=== PATIENT | female | born 1990 | race African-American/Black ===

== ENCOUNTER 2019-06-24 07:36 | Inpatient (IN) ==
[2019-06-24] MEDS ORDERED: FAMOTIDINE 20 MG/2 ML VIAL IV ONE (07:42)
[2019-06-24] MEDS ORDERED: CITRIC ACID/SODIUM CITRATE 30 ML UDCUP PO ONE (07:42)
[2019-06-24] MEDS ORDERED: ceFAZolin 2,000 MG in PREMIX 1 EACH IV ONE (07:42)
[2019-06-24] MEDS ORDERED: OXYTOCIN/LR 30 UNIT/1,000 ML BAG IV ONE (07:43)
[2019-06-24] MEDS ORDERED: OXYTOCIN 10 UNIT/ML VIAL IM ONE (07:43)
[2019-06-24] MEDS ORDERED: LACTATED RINGERS 1,000 ML IV SCH ×2 (08:00→11:30)
[2019-06-24] MEDS ORDERED: BUTORPHANOL 1 MG/ML VIAL ONE (08:08)
[2019-06-24 08:14] LABS: Basophils % 0.2 % (0.0-0.8); Eosinophils # 0.1 10*3/uL (0.0-0.87); Eosinophils % 0.6 % (0.00-10.9); Hematocrit 33.6 VOL% (35.7-47.0); Hemoglobin 10.7 GM/DL (12.0-16.0); Immature Granulocytes % 0.6 %; Immature Granulocytes Absolute 0.07 #; Lymphocytes # 2.7 10*3/uL (1.4-4.0); Lymphocytes % 21.4 % (21.3-54.2); Mean Corpuscular HGB Conc 31.8 GM/DL (32-36); Mean Corpuscular Volume 73.7 FL (87-102); Mean Platelet Volume 9.2 FL (9.6-12.0); Monocytes % 10.4 % (1.7-12.7); Neutrophils % 66.8 % (38.7-73.9); Platelet Count 312 T/CUMM (130-400); Red Blood Count 4.56 MC/CUMM (3.8-5.5); Red Cell Distribution Width 13.8 % (9.3-17.3); White Blood Count 12.6 T/CUMM (4-12)
[2019-06-24] MEDS ORDERED: OXYTOCIN/LR 20 UNIT/1,000 ML BAG IV ONE ×2 (09:02→11:11)
[2019-06-24 10:46] LABS: Apearance,Urine CLEAR (Clear); Bilirubin,Urine Negative (Negative); Blood, Urine Negative (Negative); Glucose,Urine (UA) Negative (Negative); Ketones,Urine 20 mg/dL (Negative); Mucus,Urine Occasional /LPF (Occasional); Nitrite,Urine Negative (Negative); Protein,Urine Negative; RBC,Urine 1 /HPF (0-4); Squamous Epithelial Cell,Urine Occasional /HPF (0-10); Urine Color Yellow (Yellow); Urine Specific Gravity 1.017 (1.001-1.035); WBC,Urine 1 /HPF (0-6)
[2019-06-24] MEDS ORDERED: fentaNYL 100 MCG/2 ML VIAL ONE (10:50)
[2019-06-24] MEDS ORDERED: BUPIVACAINE SPINAL 0.75% 2 ML AMP SPINAL ONE (10:50)
[2019-06-24] MEDS ORDERED: MORPHINE 10 MG/10 ML VIAL ONE (10:50)
[2019-06-24] MEDS ORDERED: PHENYLEPHRINE 1 MG/10 ML SYRINGE IV ONE (10:50)
[2019-06-24] MEDS ORDERED: ONDANSETRON 4 MG/2 ML VIAL ONE (10:51)
[2019-06-24] MEDS ORDERED: LACTATED RINGERS 1,000 ML IV ONE (10:51)
[2019-06-24] MEDS ORDERED: DEXAMETHASONE 4 MG/1 ML VIAL ONE (10:55)
[2019-06-24] MEDS ORDERED: BUPIVACAINE 0.5% 50 ML VIAL ONE (10:55)
[2019-06-24] MEDS ORDERED: ONDANSETRON 4 MG/2 ML VIAL IV PRN (11:11)
[2019-06-24] MEDS ORDERED: ACETAMINOPHEN 325 MG TABLET PO PRN (11:11)
[2019-06-24] MEDS ORDERED: MAGNESIUM HYDROXIDE SUSP 30 ML UDCUP PO PRN (11:11)
[2019-06-24] MEDS ORDERED: SIMETHICONE CHEW 80 MG TABLET PO PRN (11:11)
[2019-06-24] MEDS ORDERED: RHO(D) IMMUNE GLOBULIN 300 MCG SYRINGE IM ONE (11:11)
[2019-06-24] MEDS ORDERED: diphenhydrAMINE 50 MG/1 ML VIAL IV PRN (14:29)
[2019-06-24] MEDS ORDERED: ceFAZolin 1,000 MG in SYRINGE 1 EACH IV SCH (14:30)
[2019-06-24] MEDS ORDERED: diphenhydrAMINE 50 MG/1 ML VIAL ONE (14:47)
[2019-06-24] MEDS: ceFAZolin 1,000 MG in SYRINGE 1 EACH IV SCH (17:08)
[2019-06-24] MEDS: IBUPROFEN 800 MG TABLET PO PRN (18:48)
[2019-06-24 19:04] LABS: Hematocrit 32.7 VOL% (35.7-47.0); Hemoglobin 10.5 GM/DL (12.0-16.0); Mean Corpuscular Volume 73.6 FL (87-102); Red Blood Count 4.44 MC/CUMM (3.8-5.5)
[2019-06-24 19:05] LABS: Basophils % 0.3 % (0.0-0.8); Lymphocytes % 3.8 % (21.3-54.2); Mean Corpuscular HGB Conc 32.1 GM/DL (32-36); Mean Platelet Volume 8.8 FL (9.6-12.0); Neutrophils % 90.3 % (38.7-73.9); Platelet Count 313 T/CUMM (130-400); Red Cell Distribution Width 13.5 % (9.3-17.3)
[2019-06-24 19:06] LABS: Basophils # 0.1 10*3/uL (0.0-0.2); Immature Granulocytes % 0.6 %; Immature Granulocytes Absolute 0.14 #; Lymphocytes # 0.8 10*3/uL (1.4-4.0)
[2019-06-24 19:09] LABS: Elliptocytes 1+; Hypochromasia 1+; Lymphocytes 4 % (20-55); Segmented Neutrophils 92 % (50-85); Target Cells 1+; Total Cells Counted 100
[2019-06-24 19:10] LABS: Platelet Estimate Adequate; Polychromasia Few
[2019-06-24] MEDS ORDERED: hydrOXYzine HCL 25 MG/1 ML VIAL IM PRN (20:56)
[2019-06-24] MEDS: DOCUSATE SODIUM 100 MG CAPSULE PO SCH (22:06)
[2019-06-25] MEDS: ceFAZolin 1,000 MG in SYRINGE 1 EACH IV SCH (01:05)
[2019-06-25 05:33] LABS: Basophils % 0.2 % (0.0-0.8); Eosinophils % 0.2 % (0.00-10.9); Hemoglobin 9.1 GM/DL (12.0-16.0); Immature Granulocytes % 0.6 %; Lymphocytes % 17.1 % (21.3-54.2); Mean Corpuscular HGB Conc 32.5 GM/DL (32-36); Mean Corpuscular Volume 73.5 FL (87-102); Mean Platelet Volume 9.6 FL (9.6-12.0); Monocytes % 9.8 % (1.7-12.7); Neutrophils % 72.1 % (38.7-73.9); Platelet Count 284 T/CUMM (130-400); Red Blood Count 3.81 MC/CUMM (3.8-5.5); Red Cell Distribution Width 13.7 % (9.3-17.3); White Blood Count 17.3 T/CUMM (4-12)
[2019-06-25] MEDS: METOCLOPRAMIDE 10 MG TABLET PO SCH ×2 (09:23→20:41)
[2019-06-25] MEDS: MULTIVITAMIN (PRENATAL) TABLET PO SCH (09:23)
[2019-06-25] MEDS: DOCUSATE SODIUM 100 MG CAPSULE PO SCH ×2 (09:23→20:41)
[2019-06-25] MEDS: IBUPROFEN 800 MG TABLET PO PRN ×2 (10:03→20:43)
[2019-06-26] MEDS: IBUPROFEN 800 MG TABLET PO PRN (04:17)
[2019-06-26] MEDS: METOCLOPRAMIDE 10 MG TABLET PO SCH (06:18)
[2019-06-26 07:34] VITALS: BP 121/67
[2019-06-26] MEDS ORDERED: INFLUENZA VIRUS VACCINE 0.5 ML SYRINGE IM ONE (08:22)
[2019-06-26] MEDS: MULTIVITAMIN (PRENATAL) TABLET PO SCH (08:51)
[2019-06-26] MEDS: DOCUSATE SODIUM 100 MG CAPSULE PO SCH (08:51)
[2019-06-26] MEDS ORDERED: DIPH/TET/ACEL PERT BOOSTER VACCINE 0.5 ML VIAL IM ONE (09:22)
== END 2019-06-26 15:05 | disposition home or self-care (01) | DRG 540 ==
LOC: N.LD 07:36 → N.OB 14:00
PROVIDERS: ADMIT Obstetrics & Gynecology; ATTEND Obstetrics & Gynecology
PROC: LDCSECT (ICD-10-PCS; 2019-06-24 13:15)

== ENCOUNTER 2020-08-15 10:38 | Inpatient (IN) ==
[2020-08-15] MEDS ORDERED: ceFAZolin 2,000 MG in PREMIX 1 EACH IV ONE (10:53)
[2020-08-15] MEDS ORDERED: CITRIC ACID/SODIUM CITRATE 30 ML UDCUP PO ONE (10:53)
[2020-08-15] MEDS ORDERED: FAMOTIDINE 20 MG/2 ML VIAL IV ONE (10:53)
[2020-08-15] MEDS ORDERED: LACTATED RINGERS 1,000 ML IV ONE ×2 (10:55→15:24)
[2020-08-15] MEDS ORDERED: LACTATED RINGERS 1,000 ML IV SCH ×2 (11:00→17:00)
[2020-08-15] MEDS ORDERED: OXYTOCIN/LR 30 UNIT/1,000 ML BAG IV ONE (11:02)
[2020-08-15] MEDS ORDERED: OXYTOCIN 10 UNIT/ML VIAL IM ONE (11:02)
[2020-08-15 11:25] LABS: Basophils % 0.3 % (0.0-0.8); Eosinophils # 0.1 10*3/uL (0.0-0.87); Eosinophils % 0.6 % (0.00-10.9); Hematocrit 35.8 VOL% (35.7-47.0); Hemoglobin 11.7 GM/DL (12.0-16.0); Immature Granulocytes % 0.5 %; Immature Granulocytes Absolute 0.06 #; Lymphocytes # 2.6 10*3/uL (1.4-4.0); Lymphocytes % 22.5 % (21.3-54.2); Mean Corpuscular HGB Conc 32.7 GM/DL (32-36); Mean Corpuscular Volume 74.6 FL (87-102); Mean Platelet Volume 9.2 FL (9.6-12.0); Monocytes % 7.8 % (1.7-12.7); Neutrophils % 68.3 % (38.7-73.9); Platelet Count 282 T/CUMM (130-400); Red Cell Distribution Width 14.5 % (9.3-17.3); White Blood Count 11.5 T/CUMM (4-12)
[2020-08-15 11:51] LABS: Alanine Aminotransferase 41 U/L (13-56); Albumin 2.7 G/DL (3.4-5.0); Alkaline Phosphatase 219 U/L (45-117); Aspartate Amino Transferase 28 U/L (0-37); Bilirubin,Total < 0.39 MG/DL (0.2-1.0); Blood Urea Nitrogen 10 MG/DL (7-18); Calcium 9.5 MG/DL (8.5-10.1); Estimated Glom Filtration Rate 125 ML/MIN; Glucose 71 MG/DL (74-106); Total Protein 7.8 G/DL (6.4-8.3)
[2020-08-15] MEDS ORDERED: BUPIVACAINE SPINAL 0.75% 2 ML AMP SPINAL ONE (14:32)
[2020-08-15] MEDS ORDERED: MORPHINE 10 MG/10 ML VIAL ONE (14:32)
[2020-08-15] MEDS ORDERED: BUPIVACAINE MPF 0.5% /EPI 30 ML VIAL ONE (14:32)
[2020-08-15] MEDS ORDERED: ONDANSETRON 4 MG/2 ML VIAL ONE (14:32)
[2020-08-15] MEDS ORDERED: miSOPROStoL 200 MCG TABLET ONE (14:45)
[2020-08-15] MEDS ORDERED: CARBOPROST TROMETHAMINE 250 MCG/ML AMP IM ONE (14:45)
[2020-08-15] MEDS ORDERED: METHYLERGONOVINE 0.2 MG/1 ML AMP ONE (14:45)
[2020-08-15] MEDS ORDERED: TRANEXAMIC ACID 1,000 MG/10 ML VIAL ONE (14:45)
[2020-08-15] MEDS ORDERED: SODIUM CHLORIDE 0.9% 100 ML IV ONE (14:46)
[2020-08-15] MEDS ORDERED: DEXAMETHASONE 4 MG/1 ML VIAL ONE (15:27)
[2020-08-15] MEDS ORDERED: KETOROLAC 30 MG/1 ML VIAL ONE (15:27)
[2020-08-15] MEDS ORDERED: MIDAZOLAM 2 MG/2 ML VIAL ONE (15:38)
[2020-08-15 15:47] LABS: Cord Arterial Blood HCO3 24.1 MMOL/L
[2020-08-15 15:51] LABS: Cord Venous Blood HCO3 23.9 MMOL/L; Cord Venous Blood PCO2 40.5 MMHG; Cord Venous Blood PO2 35.2
[2020-08-15 15:52] LABS: Bilirubin,Urine Negative (Negative); Blood, Urine Negative (Negative); Glucose,Urine (UA) Negative (Negative); Ketones,Urine 5 mg/dL (Negative); Mucus,Urine Occasional /LPF (Occasional); Nitrite,Urine Negative (Negative); Protein,Urine Negative; RBC,Urine <1 /HPF (0-4); Squamous Epithelial Cell,Urine Occasional /HPF (0-10); Urine Appearance CLEAR (Clear); Urine Color Straw (Yellow); Urine Specific Gravity 1.009 (1.001-1.035); Urine Urobilinogen < 2.0 EU/DL (0.2-1.0); WBC,Urine <1 /HPF (0-6)
[2020-08-15] MEDS ORDERED: PHENYLEPHRINE 1 MG/10 ML SYRINGE IV ONE (16:09)
[2020-08-15] MEDS ORDERED: RHO(D) IMMUNE GLOBULIN 300 MCG SYRINGE IM ONE (16:56)
[2020-08-15] MEDS ORDERED: IBUPROFEN 800 MG TABLET PO PRN (16:56)
[2020-08-15] MEDS ORDERED: ACETAMINOPHEN 325 MG TABLET PO PRN (16:56)
[2020-08-15] MEDS ORDERED: SIMETHICONE CHEW 80 MG TABLET PO PRN (16:56)
[2020-08-15] MEDS ORDERED: ONDANSETRON 4 MG/2 ML VIAL IV PRN (16:56)
[2020-08-15] MEDS ORDERED: OXYTOCIN/LR 20 UNIT/1,000 ML BAG IV ONE (16:56)
[2020-08-15] MEDS ORDERED: PROMETHAZINE 25 MG/1 ML VIAL ONE (16:56)
[2020-08-15] MEDS ORDERED: PROMETHAZINE 25 MG/1 ML VIAL IM ONE (16:57)
[2020-08-15] MEDS ORDERED: ceFAZolin 1,000 MG in SYRINGE 1 EACH IV SCH (17:00)
[2020-08-15] MEDS ORDERED: diphenhydrAMINE 50 MG/1 ML VIAL IV PRN (19:06)
[2020-08-15 22:41] LABS: Basophils % 0.2 % (0.0-0.8); Hematocrit 35.6 VOL% (35.7-47.0); Hemoglobin 11.5 GM/DL (12.0-16.0); Immature Granulocytes % 0.6 %; Lymphocytes % 5.6 % (21.3-54.2); Mean Corpuscular HGB Conc 32.3 GM/DL (32-36); Mean Corpuscular Volume 74.9 FL (87-102); Mean Platelet Volume 9.3 FL (9.6-12.0); Monocytes % 2.2 % (1.7-12.7); Neutrophils % 91.4 % (38.7-73.9); Platelet Count 259 T/CUMM (130-400); Red Blood Count 4.75 MC/CUMM (3.8-5.5); Red Cell Distribution Width 14.6 % (9.3-17.3)
[2020-08-15] MEDS: DOCUSATE SODIUM 100 MG CAPSULE PO SCH (22:52)
[2020-08-16 00:12] LABS: Lymphocytes 6 % (20-55); Segmented Neutrophils 94 % (50-85); Total Cells Counted 100
[2020-08-16 00:13] LABS: Hypochromasia 1+; Microcytosis 2+; Platelet Estimate Normal; Polychromasia Few
[2020-08-16 00:14] LABS: Anisocytosis Slight
[2020-08-16 05:07] LABS: Basophils % 0.2 % (0.0-0.8); Hematocrit 29.8 VOL% (35.7-47.0); Hemoglobin 9.6 GM/DL (12.0-16.0); Immature Granulocytes % 0.6 %; Lymphocytes # 1.5 10*3/uL (1.4-4.0); Lymphocytes % 9.4 % (21.3-54.2); Mean Corpuscular HGB Conc 32.2 GM/DL (32-36); Mean Corpuscular Volume 75.1 FL (87-102); Mean Platelet Volume 9.7 FL (9.6-12.0); Monocytes % 5.7 % (1.7-12.7); Neutrophils % 84.1 % (38.7-73.9); Platelet Count 252 T/CUMM (130-400); Red Blood Count 3.97 MC/CUMM (3.8-5.5); Red Cell Distribution Width 14.5 % (9.3-17.3); White Blood Count 15.5 T/CUMM (4-12)
[2020-08-16] MEDS ORDERED: ceFAZolin 1,000 MG in SYRINGE 1 EACH IV SCH (07:00)
[2020-08-16] MEDS ORDERED: diphenhydrAMINE CAP 25 MG CAPSULE PO PRN (07:35)
[2020-08-16] MEDS: MAGNESIUM HYDROXIDE SUSP 30 ML UDCUP PO PRN ×2 (08:08→19:46)
[2020-08-16] MEDS: DOCUSATE SODIUM 100 MG CAPSULE PO SCH ×2 (08:08→19:46)
[2020-08-16] MEDS: MULTIVITAMIN (PRENATAL) TABLET PO SCH (08:08)
[2020-08-17] MEDS: DOCUSATE SODIUM 100 MG CAPSULE PO SCH ×2 (05:49→08:34)
[2020-08-17 07:19] VITALS: BP 131/75
[2020-08-17] MEDS: MULTIVITAMIN (PRENATAL) TABLET PO SCH (08:32)
[2020-08-17] MEDS: MAGNESIUM HYDROXIDE SUSP 30 ML UDCUP PO PRN (08:34)
== END 2020-08-17 11:25 | disposition home or self-care (01) | DRG 540 ==
LOC: N.LD 10:38 → N.OB 18:29
PROVIDERS: ADMIT Obstetrics & Gynecology; ATTEND Obstetrics & Gynecology
PROC: LDCSECT (ICD-10-PCS; 2020-08-15 12:45)

== ENCOUNTER 2022-11-08 20:19 | Inpatient (IN) ==
[2022-11-08 21:43] LABS: Basophils % 0.3 % (0.0-0.8); Eosinophils % 0.1 % (0.00-10.9); Hematocrit 41.8 VOL% (35.7-47.0); Hemoglobin 13.6 GM/DL (12.0-16.0); Immature Granulocytes % 0.6 %; Lymphocytes # 2.2 10*3/uL (1.4-4.0); Lymphocytes % 13.5 % (21.3-54.2); Mean Corpuscular HGB Conc 32.5 GM/DL (32-36); Mean Corpuscular Volume 73.9 FL (87-102); Mean Platelet Volume 9.3 FL (9.6-12.0); Monocytes # 0.5 10*3/uL (0.11-0.8); Monocytes % 3.4 % (1.7-12.7); Neutrophils % 82.1 % (38.7-73.9); Platelet Count 281 T/CUMM (130-400); Red Blood Count 5.66 MC/CUMM (3.8-5.5); Red Cell Distribution Width 13.8 % (9.3-17.3); White Blood Count 15.94 T/CUMM (4-12)
[2022-11-08] MEDS ORDERED: ONDANSETRON 4 MG/2 ML VIAL IV STA (22:01)
[2022-11-08] MEDS ORDERED: HYDROmorphone 1 MG/1 ML SYRINGE IV STA (22:01)
[2022-11-08 22:08] LABS: Albumin 4.3 G/DL (3.4-5.0); Bilirubin,Total 0.4 MG/DL (0.20-1.00); Calcium 9.2 MG/DL (8.5-10.1); Osmolality,Calculated 286.8 MOS/KG (273-304); Potassium 4.1 MMOL/L (3.5-5.1); Total Protein 8.6 G/DL (6.4-8.2)
[2022-11-08] MEDS ORDERED: ceFAZolin 2,000 MG/50 ML DUPLEX IV ONE (22:15)
[2022-11-08] MEDS ORDERED: MAGNESIUM HYDROXIDE SUSP 30 ML UDCUP PO PRN (22:15)
[2022-11-09] MEDS: ONDANSETRON 4 MG/2 ML VIAL IV PRN ×2 (01:44→06:46)
[2022-11-09] MEDS: HYDROmorphone 1 MG/1 ML SYRINGE IV PRN ×2 (01:44→04:50)
[2022-11-09] MEDS ORDERED: LIDOCAINE 2% 5 ML VIAL ONE (08:20)
[2022-11-09] MEDS ORDERED: MIDAZOLAM 2 MG/2 ML VIAL ONE (08:20)
[2022-11-09] MEDS ORDERED: propofoL 200 MG/20 ML VIAL IV ONE (08:20)
[2022-11-09] MEDS ORDERED: fentaNYL 100 MCG/2 ML VIAL ONE (08:21)
[2022-11-09] MEDS: PANTOPRAZOLE 40 MG TABLET PO SCH (09:59)
[2022-11-09] MEDS ORDERED: KETOROLAC 30 MG/1 ML VIAL IV PRN (10:01)
[2022-11-09] MEDS ORDERED: GENTAMICIN 80 MG/2 ML VIAL ONE (10:30)
[2022-11-09] MEDS ORDERED: LACTATED RINGERS 1,000 ML IV SCH (10:30)
[2022-11-09] MEDS ORDERED: KETOROLAC 30 MG/1 ML VIAL ONE (10:52)
[2022-11-09] MEDS ORDERED: DEXAMETHASONE 4 MG/1 ML VIAL ONE (10:52)
[2022-11-09] MEDS ORDERED: ONDANSETRON 4 MG/2 ML VIAL ONE (10:52)
[2022-11-09] MEDS ORDERED: SEVOFLURANE 1 UNIT/15 MINUTE INH ONE ×5 (10:52)
[2022-11-09] MEDS ORDERED: ACETAMINOPHEN INJ 1,000 MG/100 ML VIAL IV ONE (10:52)
[2022-11-09] MEDS ORDERED: LACTATED RINGERS 2,000 ML IV ONE (11:25)
[2022-11-09] MEDS ORDERED: BACITRACIN OINT 0.9 GM PACK TOP ONE (11:44)
[2022-11-09] MEDS ORDERED: MORPHINE 2 MG/1 ML SYRINGE IV PRN ×2 (12:02)
[2022-11-09] MEDS ORDERED: MEPERIDINE 25 MG/1 ML VIAL ONE (12:31)
[2022-11-09] MEDS ORDERED: PROMETHAZINE 25 MG/1 ML VIAL ONE (12:31)
[2022-11-09] MEDS ORDERED: PROMETHAZINE INJ 25 MG in SODIUM CHLORIDE 0.9% 50 ML IV PRN (12:58)
[2022-11-09] MEDS ORDERED: ONDANSETRON 4 MG/2 ML VIAL IV PRN (12:58)
[2022-11-09] MEDS ORDERED: MEPERIDINE 25 MG/1 ML VIAL IV PRN (12:58)
[2022-11-10 05:23] LABS: Basophils % 0.2 % (0.0-0.8); Eosinophils % 0.2 % (0.00-10.9); Hematocrit 34.5 VOL% (35.7-47.0); Hemoglobin 11.2 GM/DL (12.0-16.0); Immature Granulocytes % 0.6 %; Lymphocytes # 3.5 10*3/uL (1.4-4.0); Mean Corpuscular HGB Conc 32.5 GM/DL (32-36); Mean Corpuscular Volume 73.9 FL (87-102); Monocytes # 1.7 10*3/uL (0.11-0.8); Monocytes % 9.5 % (1.7-12.7); Neutrophils % 69.5 % (38.7-73.9); Platelet Count 214 T/CUMM (130-400); Red Blood Count 4.67 MC/CUMM (3.8-5.5); Red Cell Distribution Width 13.3 % (9.3-17.3); White Blood Count 17.47 T/CUMM (4-12)
[2022-11-10 05:44] LABS: Calcium 9.1 MG/DL (8.5-10.1); Potassium 3.3 MMOL/L (3.5-5.1)
[2022-11-10] MEDS ORDERED: POTASSIUM CHLORIDE 20 MEQ TABLET PO ONE (07:30)
[2022-11-10 07:40] VITALS: BP 149/85
[2022-11-10] MEDS: PANTOPRAZOLE 40 MG TABLET PO SCH (08:19)
[2022-11-10] MEDS ORDERED: FONDAPARINUX 2.5 MG/0.5 ML SYRINGE SUBCUT SCH (09:00)
== END 2022-11-10 15:03 | disposition home or self-care (01) | DRG 313 ==
LOC: N.ED 20:19 → N.EDINP 20:19 → N.3E 11-09 10:00
PROVIDERS: ADMIT Orthopaedic Surgery; ATTEND Orthopaedic Surgery